=== PATIENT | female | born 1955 | race Caucasian/White ===

== ENCOUNTER 2021-10-13 07:58 | Observation (INO) ==
--- NOTE | 2021-08-07 13:29 | PAT Medication Instructions ---
Medication Instructions Date of Service August 07, 2021 Home Medications Medication Instructions Recorded Flutter Valve #1 ea 03/06/21 levocetirizine 5 mg tablet 5 mg PO DAILY PRN #90 tab 04/14/21 albuterol sulfate 90 mcg/actuation 2 puff INHALATION UD PRN #8.5 g 06/22/21 aerosol inhaler ibuprofen 200 mg capsule 800 mg PO UD PRN losartan 100 mg tablet 100 mg PO QAM red yeast rice 600 mg capsule 600 mg PO QAM tramadol 50 mg tablet (Ultram) 100 mg PO QID Progesterone 200 mg PO QPM coenzyme Q10 100 mg capsule (CoQ-10) 100 mg PO HS levocetirizine 5 mg tablet 5 mg PO DAILY PRN tiotropium bromide 2.5 mcg/actuation mist for inhalation (Spiriva Respimat) 2 puff INHALATION QAM albuterol sulfate 90 mcg/actuation aerosol inhaler 2 puff INHALATION UD PRN fluticasone propionate 50 mcg/actuation nasal spray,suspension (Allergy Relief (fluticasone)) 1 spray INTRANASAL DAILY PRN ASK your surgeon for instructions ibuprofen 200 mg capsule 800 mg PO UD PRN STOP taking 2 weeks before surgery red yeast rice 600 mg capsule 600 mg PO QAM coenzyme Q10 100 mg capsule (CoQ-10) 100 mg PO HS DO NOT take the morning of surgery losartan 100 mg tablet 100 mg PO QAM levocetirizine 5 mg tablet 5 mg PO DAILY PRN Take morning of surgery With a small sip of water, OTHERWISE NOTHING TO EAT OR DRINK AFTER MIDNIGHT: tramadol 50 mg tablet (Ultram) 100 mg PO QID tiotropium bromide 2.5 mcg/actuation mist for inhalation (Spiriva Respimat) 2 puff INHALATION QAM albuterol sulfate 90 mcg/actuation aerosol inhaler 2 puff INHALATION UD PRN (use if needed; please bring with you to hospital day of surgery if possible) fluticasone propionate 50 mcg/actuation nasal spray,suspension (Allergy Relief (fluticasone)) 1 spray INTRANASAL DAILY PRN (if needed) Take evening before surgery tramadol 50 mg tablet (Ultram) 100 mg PO QID albuterol sulfate 90 mcg/actuation aerosol inhaler 2 puff INHALATION UD PRN (if needed) fluticasone propionate 50 mcg/actuation nasal spray,suspension (Allergy Relief (fluticasone)) 1 spray INTRANASAL DAILY PRN (if needed) Progesterone 200 mg PO QPM (unless surgeon directed otherwise) Other Notes If you have any questions please call us at [phone] or [phone] or [phone] or [phone]
--- NOTE | 2021-08-10 15:13 | Anesthesiology Consultation ---
Date of Service August 10, 2021 Assessment & Plan (1) Encounter for pre-operative examination: - awaiting vascular surgery clearance, pending evaluation will then re-visit outpatient joint eligibility per Dr. Phelps. Message left for pt. - carotid artery stenosis: s/p R CEA, 60-69% stenosis L ICA. Last carotid doppler more than 1 year ago. Chronic, infrequent dizziness/lightheadedness without presyncope. Case reviewed with Dr. Olivier Phelps who advised patient will need vascular surgery clearance prior to TSA and pending that evaluation, outpatient joint eligibility will need further reviewed. - Pt advised she needs to contact surgeon's office regarding if it is acceptable to proceed with root canal/surgery as planned, she verbalized understanding and agreement. - pulm 06/22/21 [place]: "...COPD with chronic bronchitis. Gold class B/C...still complains of shortness of breath which is usually when she is sitting. Stress/anxiety could be playing a role in that...PFT 06/18/2021: No obstructive lung dysfunction, insignificant bronchodilator response, normal TLC, normal DLCO: FVC 3.2 L 75%, FEV1 2.62 L 107%, FEV1/FVC 80%, RV 60%, TLC 88%, RV/TLC 67%, DLCO 77%...Cough likely secondary to upper airway cough syndrome. Allergic rhinitis with postnasal drip I think is playing a role major role. Chronic bronchitis can also be one of the reasons. Continue with fluticasone nasal spray and OTC antihistamine as needed basis..." - COVID screening: Per assessment on 08/10/2021: Travel screen negative, no known COVID-19 positive contacts or current COVID-19 related symptoms in past 2 weeks. Surgeon arranging preop COVID testing, scheduled 09/03/2021. Awaiting results. Chart Review Chart Review: Pending: Refer to Additional Notes / Consult section and Patient seen in Pre Admission Testing Teaching & Discussion Pre-Anesthesia Teaching/Discussion Notes: Instructed NPO after midnight before surgery, except medications with 15 cc of water. Medication instructions provided according to the PAT guidelines. History Surgery Operation Date: 09/07/21 12:30 Proposed Procedures p Right Total Shoulder Arthroplasty Reverse versus - Cayetano Campos DO s Total Shoulder Arthroplasty - Cayetano A Andres, DO Height/Weight Height: 5 ft 5 in Weight: 72 kg Allergies Allergy/AdvReac Type Severity Reaction Status Date / Time meperidine Allergy Intermediate Dyspnea Verified 08/07/21 12:08 Penicillins Allergy Intermediate Eye Verified 08/07/21 12:08 swelling Medications Home Medications Medication Instructions Recorded Confirmed Last Taken ibuprofen 200 mg capsule 800 mg PO UD PRN 05/22/19 08/07/21 12/02/20 losartan 100 mg tablet 100 mg PO QAM 05/22/19 08/07/21 02/19/21 07:30 red yeast rice 600 mg capsule 600 mg PO QAM 05/22/19 08/07/21 02/17/21 20:00 tramadol 50 mg tablet (Ultram) 100 mg PO QID 05/22/19 08/07/21 06/22/21 Progesterone 200 mg PO QPM 01/22/20 08/07/21 02/17/21 coenzyme Q10 100 mg capsule 100 mg PO HS 01/22/20 08/07/21 02/17/21 20:00 (CoQ-10) Flutter Valve #1 ea 03/06/21 07/08/21 Unknown levocetirizine 5 mg tablet 5 mg PO DAILY PRN #90 tab 04/14/21 08/07/21 Unknown tiotropium bromide 2.5 2 puff INHALATION QAM 05/12/21 08/07/21 Unknown mcg/actuation mist for inhalation (Spiriva Respimat) albuterol sulfate 90 mcg/actuation 2 puff INHALATION UD PRN #8.5 g 06/22/21 08/07/21 Unknown aerosol inhaler fluticasone propionate 50 1 spray INTRANASAL DAILY PRN 08/07/21 08/07/21 Unknown mcg/actuation nasal spray,suspension (Allergy Relief (fluticasone)) Past Medical History Medical History (Updated 08/11/21 @ 10:11 by Betty Bee PA-C) Carotid artery stenosis s/p Right CEA (2011), under surveillance by vascular (Dr. Martinez) Patent right carotid endarterectomy with no evidence of restenosis, 60-69% LICA stenosis by velocity criteria however there are elevated CCA velocities and ICA/CCA ratio <2 suggesting no hemodynamically significant stenosis per 12/20/19 carotid duplex. No change compared to 12/04/18 study per report; pt reports chronic infrequent lightheadedness/dizziness without presyncope COPD (chronic obstructive pulmonary disease) Gold class B/C-stable per pt, denies inhaler use x several wks Fibromyalgia Hyperlipidemia Hypertension controlled, stable per pt Irregular heart beat Had loop recorder (2012) which found no significant findings after 5-6 yrs and was removed per PCP records Left lumbar radiculopathy Left sacral radiculopathy Patient denies h/o stroke, seizures, heart attack, heart failure, DM, blood clots or blood transfusions. Exercise / Class Metabolic Activity II 4-5 Yardwork/Stairs/Walk up hill (denies CP or SOB with 1 FOS) Past Family History Family History Other No family history of adverse response to anesthesia Past Surgical History Surgical History History of arthroscopy R/L knees (multiple) History of arthroscopy Right shoulder History of cardiac cath "10 or 15 years ago" @ [place]--no stents History of carpal tunnel release CTR + ulnar nerve decompression (01/01/21): LMA#4, atraumatic at [facility] History of carpal tunnel surgery of left wrist AND ULNAR NERVE DECOMPRESSION FEB 19 2021 History of CEA (carotid endarterectomy) Right (2011) History of colonoscopy History of knee surgery R/L ACL reconstruction S/P arthroscopy of left shoulder 02/07/20: Grade 1 view, MAC 3, ETT 7.0. S/P epidural steroid injection HX--multiple Past Anesthesia History No Hx of Anesthesia Complications and No Family Hx of Anesthesia Complications History of PONV No Hx of PONV and No Hx of Motion Sickness Social History Smoking Status: Former smoker tobacco type: cigarettes Do You Dip or Chew Tobacco: No Smoking End Date: quit 02/13/21 Hx Alcohol Use: No Hx Substance Use: No substance use type: does not use Review of Systems Chronic, infrequent dizziness/lightheadedness. Denies syncope, visual changes, headaches or abnormal sensations. Occasional snoring, occasionally snores self awake. Patient denies chest pain, shortness of breath, reflux, fever, chills, cough, wheezing, or palpitations. Physical Exam Vital Signs Vitals BP 120/74 P 75 TEMP 98.4 SP02 98% on RA RESP 17 Physical Mild cervical extension range of motion with discomfort TMD 3.5 finger breaths Mallampati Score 2 Dentition: intact, upcoming root canal, several permanent bridges upper sides bilat; denies chipped or loose teeth, caps/crowns Lungs: normal respiratory effort. Clear throughout to auscultation, no adventitious breath sounds Cardiac: regular rate and rhythm, no murmurs noted Carotid arteries: negative bruit bilat Testing Laboratory Results 07/28/2021 WBC: 7.3 H/H: 13/39 PLATELETS: 247 SODIUM: 136 POTASSIUM: 4.3 CHLORIDE: 101 CO2: 22 BUN: 14 CREATININE: 0.6 GLUCOSE: 101 Electrocardiogram Date: 12/02/20 NSR, rate 69 bpm Loss of R wave in V1 likely lead placement Chest X-Ray Date: 02/15/21 No evidence of acute cardiopulmonary disease Stress Test Date: 08/09/19 METS 8.5 MPHR 94% Negative for inducible ischemia Mild mitral regurgitation EF 55-60% Other Testing Chest CT 03/16/21 Atherosclerotic changes in the aorta. Coronary artery calcification present Unremarkable examination Carotid doppler 01/20/20 Complex, calcified plaque in the bulb and left ICA 60-69% stenosis Patent R carotid endarterectomy with no evidence of restenosis
--- NOTE | 2021-10-08 12:17 | History & Physical Report ---
Date of Service October 08, 2021 Assessment & Plan (1) Osteoarthritis of right shoulder: We will proceed with a right total shoulder arthroplasty. Postoperatively she will be kept overnight in the hospital for postoperative medical management. She plans to use energy physical therapy upon discharge. History of Present Illness Chief Complaint: Osteoarthritis of the right shoulder. Primary Care Provider: Yolanda Bradshaw MD Carina is a pleasant 66-year-old female who has been dealing with a year long history of right shoulder pain. She works at [employer]. 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 She has been having pain for the past year. She does have a history of right shoulder arthroscopy done about 12 years ago. She was having no pain in her shoulder untilthework- related incident. She has been seen by a local orthopedist. X-rays and MRI of the shoulder do show advanced osteoarthritis. After failing a year of conservative treatment, sheis electingto proceed with a right total shoulder arthroplasty. Allergies Allergy/AdvReac Type Severity Reaction Status Date / Time meperidine Allergy Intermediate Dyspnea Verified 10/06/21 15:33 Penicillins Allergy Intermediate Eye Verified 10/06/21 15:33 swelling Home Medications Medication Instructions Recorded Confirmed Type ibuprofen 200 mg capsule 800 mg PO UD PRN Pain 05/22/19 10/06/21 History losartan 100 mg tablet 100 mg PO QAM 05/22/19 10/06/21 History red yeast rice 600 mg capsule 600 mg PO QAM 05/22/19 10/06/21 History tramadol 50 mg tablet (Ultram) 100 mg PO QID 05/22/19 10/06/21 History Progesterone 200 mg PO QPM 01/22/20 10/06/21 History coenzyme Q10 100 mg capsule 100 mg PO HS 01/22/20 10/06/21 History (CoQ-10) Flutter Valve #1 ea 03/06/21 10/06/21 Rx levocetirizine 5 mg tablet 5 mg PO DAILY PRN allergy symptoms 04/14/21 10/06/21 Rx #90 tabs tiotropium bromide 2.5 2 puff inhalation QAM 05/12/21 10/06/21 History mcg/actuation mist for inhalation (Spiriva Respimat) albuterol sulfate 90 mcg/actuation 2 puff inhalation UD PRN Shortness 06/22/21 10/06/21 Rx aerosol inhaler Of Breath Or Wheezing #8.5 grams fluticasone propionate 50 1 spray intranasal DAILY PRN 08/07/21 10/06/21 History mcg/actuation nasal Allergy Symptoms spray,suspension (Allergy Relief (fluticasone)) Past Med/Surg History Medical History Carotid artery stenosis s/p Right CEA (2011), under surveillance by vascular (Dr. Martinez) Patent right carotid endarterectomy with no evidence of restenosis, 60-69% LICA stenosis by velocity criteria however there are elevated CCA velocities and ICA/CCA ratio <2 suggesting no hemodynamically significant stenosis per 12/20/19 carotid duplex. No change compared to 12/04/18 study per report; pt reports chronic infrequent lightheadedness/dizziness without presyncope COPD (chronic obstructive pulmonary disease) Gold class B/C-stable per pt, denies inhaler use x several wks Fibromyalgia History of COVID-06 September 2021. mild symptoms. symptoms resolved Hyperlipidemia Hypertension controlled, stable per pt Irregular heart beat Had loop recorder (2012) which found no significant findings after 5-6 yrs and was removed per PCP records Left lumbar radiculopathy Left sacral radiculopathy Surgical History History of arthroscopy R/L knees (multiple) History of arthroscopy Right shoulder History of cardiac cath "10 or 15 years ago" @ [place]--no stents History of carpal tunnel release CTR + ulnar nerve decompression (01/01/21): LMA#4, atraumatic at [facility] History of carpal tunnel surgery of left wrist AND ULNAR NERVE DECOMPRESSION FEB 19 2021 History of CEA (carotid endarterectomy) Right (2011) History of colonoscopy History of knee surgery R/L ACL reconstruction S/P arthroscopy of left shoulder 02/07/20: Grade 1 view, MAC 3, ETT 7.0. S/P epidural steroid injection HX--multiple Family History Other No family history of adverse response to anesthesia Social History Smoking Status: Former smoker Second Hand Exposure: No; Hx Alcohol Use: No Hx Substance Use: No Preferred Language: Divehi Communication Ability: Effective Rn X Ray Required: No Beliefs That Will Affect Care: None Current Living Situation: Alone Feels Safe at Home: Yes Assistive Devices: Glasses and Hearing Aid - Bilateral Review of Systems All systems reviewed & are unremarkable except as noted in HPI & below. Physical Exam On physical examination the right shoulder, she has about 120 degrees of forward elevation 120 degrees of abduction. She has 5 out of 5 motor strength throughout.. Constitutional WD/WN, vitals as above Eyes PERRL, conjunctivae normal, anicteric sclerae ENMT external ear and nose normal, oropharynx normal Neck trachea midline, no thyromegaly Respiratory normal respiratory effort, lungs clear to auscultation Cardiovascular RRR, no murmur, no edema Gastrointestinal (Abdomen) normal bowel sounds, soft, nontender, no hepatosplenomegaly Skin no rashes, warm and dry Psychiatric A+Ox3, euthymic affect Results & Data Results & Data Laboratory Results . Diagnostic Findings X-rays of the right shoulder do show some osteoarthritis with joint space narrowing, osteophyte formation, and [id number] articulation. MRI of the right shoulder shows an intact rotator cuff and grade IV chondromalacia of the glenohumeral joint.. PG Care Time/CCT Total # of Minutes Spent Total Time Spent with Patient: Total time spent is greater than 50% in coordination of care (as documented) at patient's floor/unit and/or counseling patient: Coding Level of Care Code None Diagnoses Osteoarthritis of right shoulder M19.011
[~2021-10-13 07:58] MED LIST: ACETAMINOPHEN 500 MG TAB PO SCH; BUPIVACAINE 0.5 % 5 MG/1 ML PF 10ML VIAL ONE; FAMOTIDINE 20 MG TAB PO SCH; GABAPENTIN 300 MG CAP PO SCH; Ketorolac (*for OR use only*) 30 MG, dexAMETHasone 4 MG, KETAMINE HCL (**OR use only) 1... INFIL SCH; LR 15ML/HR IV SCH; LR 60ML/HR IV SCH; TRANEXAMIC ACID 1,000 MG **IV Intra-op IV SCH; TRANEXAMIC ACID 1,000 MG **IV Pre-op IV SCH; ceFAZolin 2000MG 2,000 MG/15 ML SYR IV SCH; dexAMETHasone 4 MG TAB PO SCH
--- NOTE | 2021-10-13 08:08 | History & Physical Bridge Note ---
Date of Service October 13, 2021 History & Physical Bridge Note I have examined the patient, reviewed the History & Physical and in the interval since the performance of the History & Physical I have noted the following changes of clinical significance: no changes noted
[2021-10-13 09:11] LABS: Basophils # (auto) 0.01 K/uL (0-0.2); Basophils % (auto) 0.2 %; Eosinophils # (auto) 0.05 K/uL (0-0.50); Eosinophils % (auto) 1.1 %; Hematocrit (blood only) 42.2 % (34.1-44.9); Hemoglobin 13.8 g/dl (12.0-16.0); Immature Granulocytes # (auto) 0.01 K/uL (0.00-0.02); Immature Granulocytes % (auto) 0.2 %; Lymphocytes # (auto) 1.11 K/uL (1.2-3.4); Lymphocytes % (auto) 24.3 %; Mean Corpuscular Hemoglobin 28.5 pg (25.0-34.0); Mean Corpuscular Hgb Conc 32.7 g/dL (32.0-36.0); Mean Platelet Volume 10.8 fL (9.4-12.3); Neutrophils # (auto) 2.88 K/uL (1.4-6.5); Neutrophils % (auto) 63.2 %; Platelet Count 258 K/uL (130-400); RDW Coefficient of Variation 13.2 % (11.5-14.5); RDW Standard Deviation 41.1 fL (36.4-46.3); Red Blood Count 4.85 M/uL (3.93-5.22); White Blood Count 4.56 K/ul (4.8-10.8)
[2021-10-13] MEDS ORDERED: fentaNYL citrate 100 MCG/2 ML VIAL ONE (09:21)
[2021-10-13] MEDS ORDERED: PROPOFOL IV EMULSION 10 MG/ML 20 ML VIAL IV ONE (09:21)
[2021-10-13] MEDS ORDERED: DEXAMETHASONE SOD INJ 4 MG/ML VIAL ONE (09:21)
[2021-10-13] MEDS ORDERED: LIDOCAINE 2% MPF LOCAL 5 ML VIAL INFIL ONE (09:21)
[2021-10-13] MEDS ORDERED: MIDAZOLAM HCL 1 MG/ML 2ML VIAL ONE (09:21)
[2021-10-13] MEDS ORDERED: ONDANSETRON INJ 2 MG/ML 2 ML VIAL ONE (09:21)
[2021-10-13 09:23] LABS: INR 0.9 (0.9-1.1); Partial Thromboplastin Time 26.8 Seconds (21.0-31.0)
[2021-10-13 09:44] LABS: BUN Creatinine Ratio 23.4 (10-20); Calcium 9.9 mg/dl (8.5-10.1); Creatinine Clr Calc Pharmacy 86.8 ml/min; Est GFR (African American) 108.5 ml/min; Est GFR (Non-African American) 93.6 ml/min; Potassium 3.9 mmol/L (3.5-5.1)
[2021-10-13] MEDS ORDERED: ePHEDrine sulfate 50 MG/ML AMP IV PRN (10:14)
[2021-10-13] MEDS ORDERED: fentaNYL citrate 100 MCG/2 ML VIAL IV PRN (10:14)
[2021-10-13] MEDS ORDERED: ONDANSETRON INJ 2 MG/ML 2 ML VIAL IV PRN ×2 (10:14→13:51)
[2021-10-13] MEDS ORDERED: HYDROmorphone INJ 2 MG/ML SYR/VIAL IV PRN (10:14)
[2021-10-13] MEDS ORDERED: ATROPINE SULFATE 0.1 MG/ML 10ML SYR IV PRN (10:14)
[2021-10-13] MEDS ORDERED: ceFAZolin 2,000 MG/15 ML IV PUSH IV ONE (10:46)
[2021-10-13] MEDS: ALLERGY Noted to ORDERED Medication SCH ×2 (10:52→14:05)
[2021-10-13] MEDS ORDERED: Nursing to Pharmacy Communication SCH (11:00)
[2021-10-13] MEDS ORDERED: ePHEDrine sulfate 50 MG/ML AMP ONE (11:33)
--- NOTE | 2021-10-13 12:21 | Operative Report ---
PG Post Operative Report Pre & Post Diagnosis Operation Date: 10/13/21 10:30 Pre-Op Diagnosis: Right shoulder osteoarthritis With tendinopathy long head of the biceps tendon Post-Op Diagnosis: Right shoulder osteoarthritis With tendinopathy of the long head biceps tendon I identified the patient and participated in the time-out.: Yes Procedure Operation Date: 10/13/21 10:30 Actual Procedures p Total Shoulder Arthroplasty Right(Right) with open biceps tenodesis as a distinct and separate procedure (modifier 59)- Cayetano Campos DO Surgeon Cayetano Campos DO Foundry Finisher Cayetano Butt PA-C Estimated Blood Loss 250 Findings Consistent with Post-Op Diagnosis Specimens Right humeral head Description of Procedure A CPT code modifier 59: The long head of the biceps tendon was enlarged and inflamed consistent with tendinopathy. A tenodesis was opted. This was a separate and distinct portion of the procedure. For these reasons, a CPT code modifier 59 will be added to this case. Implants used: I used a [employer] Comprehensive total shoulder arthroplasty system with a size 13 press fit micro humeral stem, a size 46 x 21 eccentric humeral head, and a size 3 glenoid with a trabecular metal peg. The glenoid was cemented in place with Palacos G cement. Roxana arrived at [facility] for the above procedure. She was seen in the preoperative holding area and the operative extremity was identified and signed. She was given a preoperative antibiotic, TXA, and an interscalene nerve block. She was taken back to the operating room, laid on table in supine position, and put under general anesthesia. She was then put into the beachchair position. The shoulder was then prepped and draped in sterile fashion. A timeout was done and the patient and the operative extremity was properly identified. A deltopectoral approach was used. Dissection was taken down through the fascia and the deltoid was retracted laterally and the conjoined tendon was retracted medially. The anterior shoulder was exposed. The biceps groove was opened up and the biceps tendon was examined extensively. The biceps tendon demonstrated enlargement and inflammatory changes consistent with longstanding inflammation in the context of osteoarthritis. The long head of the biceps tendon was then tenodesed to the upper border of the pectoralis major. This was a separate and distinct portion of the procedure. The subscapularis was then released off the lesser tuberosity with a centimeter of cuff tissue remaining. The inferior capsule was released and the humeral head was dislocated. The rotator cuff was inspected and intact. A canal finding reamer was sent down the center of the humeral canal. Sequential reaming up to a size 13 reamer was done. Offset reamer a proximal humeral resection guide was placed. The proximal humerus was resected at 135 of inclination and 30 of retroversion. Inferior osteophytes were then removed and the glenoid was exposed. Time was spent doing an appropriate labral release. The glenoid measured to be a size 3. A 3.2 mm Steinmann pin was placed in the central hole of the glenoid vault pin guide. The glenoid was then reamed with a propeller reamer. The central post cutter was then used to prepare for the central boss. The cannulated peripheral peg drill guide was then placed and 3 peg holes were drilled. The final size 3 glenoid was then cemented in place with Palacos G cement. Surrounding soft tissues were then injected with 100 cc of an orthopedic pain control cocktail. Once cement had dried the proximal humerus was once again exposed. Sequential broaching of the humerus up to a size 13 broach was done. Off that broach a size 46 x 21 eccentric humeral head was trialed. The shoulder was then reduced, brought through a full range of motion, and felt to be stable. The shoulder was then dislocated and the broach was removed. The final size 13 micro humeral stem implant was then impacted into place. A size 46 x 21 eccentric humeral head was then impacted onto the humeral stem. The shoulder was then reduced and once again brought through a full range of motion and felt to be stable. The subscapularis was then tenodesed back to the lesser tuberosity with transosseous FiberWire sutures and side to side sutures with the arm in 45 of external rotation. 2 sutures were placed in the lateral rotator interval. A dilute betadyne lavage was then done for 3 minutes. The joint was then irrigated with normal saline solution. Hemostasis was obtained. The interval was closed with 2-0 Vicryl suture. The skin was closed with 2-0 Vicryl and buck. A Silverlon dressing was placed and the arm was rested in a regular arm sling. She was then extubated and transferred to a hospital bed. She was taken to the postanesthesia care unit in stable condition. She tolerated the procedure well. Cayetano Butt PA-C, was present for the entire procedure. He was critical for patient positioning, prepping, draping, retraction exposure, wound closure and application of sterile dressing. I attest to the content of the Intraoperative Record and any orders documented therein. Any exceptions are noted below.
--- NOTE | 2021-10-13 13:46 | Anesthesiology Progress Note ---
Date of Service October 13, 2021 Anesthesia Post Procedure Vital Signs Vital Signs: Temp Pulse Pulse Resp BP BP Pulse Ox 10/13/21 13:25 36.3 C L 77 17 119/74 94 10/13/21 13:15 36.5 C 76 15 136/74 95 10/13/21 13:05 85 19 145/78 H 95 10/13/21 12:55 82 18 145/82 H 100 10/13/21 12:45 77 15 146/76 H 100 10/13/21 12:38 36.0 C L 89 14 174/100 H 99 10/13/21 08:41 36.8 C 69 20 170/89 H 100 O2 Del Method O2 Flow Rate 10/13/21 13:25 Room Air 10/13/21 13:15 Room Air 10/13/21 13:05 Room Air 10/13/21 12:55 Oxymask 5 10/13/21 12:45 Oxymask 5 10/13/21 12:38 Oxymask 5 10/13/21 08:41 Room Air Pain Intensity Right Back: Pain Intensity: 2 Transfer of Care Handoff Completed per policy Notes Mental Status: alert / awake / arousable and participated in evaluation Patient Amnestic to Procedure: Yes Nausea / Vomiting: adequately controlled Pain: adequately controlled Airway Patency, RR, SpO2: stable & adequate BP & HR: stable & adequate Hydration State: stable & adequate Anesthetic Complications: no major complications apparent and Pt Satisfied with anesthetic care
[2021-10-13] MEDS ORDERED: FLUTICASONE PROPIONATE NA SPR 16 GM BTL PRN (13:51)
[2021-10-13] MEDS ORDERED: HYDROmorphone INJ 0.5 MG/0.5 ML SYR IV PRN (13:51)
[2021-10-13] MEDS ORDERED: MAGNESIUM HYDROXIDE SUSP 30 ML UDC PO PRN (13:51)
[2021-10-13] MEDS ORDERED: METOCLOPRAMIDE HCL INJ 5 MG/ML 2 ML VIAL IV PRN (13:51)
[2021-10-13] MEDS ORDERED: bisacodyL 10 MG SUPP PR PRN (13:51)
[2021-10-13] MEDS ORDERED: NALOXONE HCL 0.4 MG/1 ML VIAL/CARP IV PRN (13:51)
[2021-10-13] MEDS ORDERED: ALBUTEROL HFA 8 GM INHALER INH PRN (13:51)
[2021-10-13] MEDS ORDERED: oxyCODONE HCL IR 5 MG TAB (IMMEDIATE RELEASE) PO PRN (13:51)
[2021-10-13] MEDS ORDERED: SODIUM CHLORIDE 0.9% 1000ML 1,000 ML IV SCH (13:51)
--- NOTE | 2021-10-13 13:53 | XRay Report ---
XR shoulder RT min 2V routine CLINICAL HISTORY: Post shoulder surgery COMPARISON: Right shoulder radiographs February 10, 2021. FINDINGS: Alignment of the right shoulder arthroplasty is anatomic. There are skin buck. No perip rosthetic fracture or unexpected radiopaque foreign bodies present. IMPRESSION: Expected findings following right shoulder arthroplasty. ACT 112: Negative or not required by law. Electronically signed by: Tee Enciso M.D. 10/13/2021 1:51 PM
[2021-10-13] MEDS: ACETAMINOPHEN 500 MG TAB PO SCH ×2 (16:43→21:31)
[2021-10-13] MEDS: KETOROLAC TROMETHAMINE 15 MG/ML VIAL IV SCH ×2 (16:43→21:32)
[2021-10-13] MEDS: traMADol HCL 50 MG TABLET PO SCH ×2 (16:44→19:54)
[2021-10-13] MEDS: ceFAZolin 2000MG 2,000 MG/15 ML SYR IV SCH (18:15)
[2021-10-13] MEDS ORDERED: SENNA 8.6 MG TAB PO SCH (21:00)
[2021-10-13] MEDS: DOCUSATE SODIUM 100 MG CAP PO SCH (21:31)
[2021-10-14] MEDS: KETOROLAC TROMETHAMINE 15 MG/ML VIAL IV SCH ×2 (03:37→10:42)
[2021-10-14] MEDS: ceFAZolin 2000MG 2,000 MG/15 ML SYR IV SCH (03:37)
[2021-10-14] MEDS: ACETAMINOPHEN 500 MG TAB PO SCH (06:43)
--- NOTE | 2021-10-14 07:09 | Orthopedic Progress Note ---
Date of Service October 14, 2021 Assessment & Plan (1) Status post replacement of right shoulder joint: Overall she is doing very well. She denies any pain in the right shoulder. She will be seen by physical therapy today for ambulation and range of motion exercises. She can be discharged home later today. She will follow-up orthopedics in 2 weeks. Isauro Lim was seen and examined at bedside this morning. Overall she is doing very well. She denies any pain in the right shoulder. She was able to get some sleep last night. She has no complaints.. Review of Systems All systems reviewed & are unremarkable except as noted in HPI & below. Physical Exam On physical examination of the right shoulder, the dressing is clean and dry. She is wearing her sling as instructed. She has full motion of her hand and wrist.. Results & Data Results & Data Laboratory Results . Diagnostic Findings Postoperative x-rays of the right shoulder show the prosthesis to be in anatomic alignment without any evidence of fracture, screws, or loosening. PG Care Time/CCT Total # of Minutes Spent Total Time Spent with Patient: Total time spent is greater than 50% in coordination of care (as documented) at patient's floor/unit and/or counseling patient: Coding Level of Care Code 44975 Post Operative Follow-Up Diagnoses Status post replacement of right shoulder joint Z96.611
--- NOTE | 2021-10-14 07:10 | Discharge Summary ---
Date of Service October 14, 2021 Admission HPI (Per Admitting) Carina is a pleasant 66-year-old female who has been dealing with a year long history of right shoulder pain. She works at [employer]. 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 She has been having pain for the past year. She does have a history of right shoulder arthroscopy done about 12 years ago. She was having no pain in her shoulder untilthework- related incident. She has been seen by a local orthopedist. X-rays and MRI of the shoulder do show advanced osteoarthritis. After failing a year of conservative treatment, sheis electingto proceed with a right total shoulder arthroplasty. Admission Exam (Per Admitting) On physical examination the right shoulder, she has about 120 degrees of forward elevation 120 degrees of abduction. She has 5 out of 5 motor strength throughout.. Principal Diagnosis Same as "Discharge Diagnosis" noted below under Discharge Instructions. Discharge Exam On physical examination of the right shoulder, the dressing is clean and dry. She is wearing her sling as instructed. She has full motion of her hand and wrist.. Discharge Data Procedures Performed Operation Date: 10/13/21 10:30 Actual Procedures p Total Shoulder Arthroplasty Right(Right) - Cayetano Campos DO Ordered Studies 10/13/21 05:00 US - OR guided needle placemen Routine Hospital Course (1) Status post replacement of right shoulder joint: On October 13, 2021 Carina arrived at [facility] and underwent a right shoulder replacement without complication. She had a general anesthetic and a right interscalene nerve block. Postoperatively she was placed in a sling and transferred to the general orthopedic floors. Her hospital course was uneventful. On postop day #1, her vital signs were stable and her pain was well controlled. She was able to participate well with physical therapy doing ambulation and range of motion exercises. She was then discharged home. She will follow-up with orthopedics in 2 weeks. PG Care Time/CCT Total # of Minutes Spent Total Time Spent with Patient: Total time spent is greater than 50% in coordination of care (as documented) at patient's floor/unit and/or counseling patient: Discharge Plan Discharge Items Patient Disposition: Home - Home Health Services Reason For Visit: Right Shoulder Osteoarthritis Discharge Diagnosis: Right shoulder replacement Activity: Per Instructions section Non-emergency contact: Surgeon Call non-emergency contact if: your wound has increased redness and your wound has increased drainage Follow-up/Referrals: Yolanda Bradshaw MD [Primary Care Provider] - Diet: Regular Addtl Attending Provider Instructions: Activity and Therapy Recommendations: * If you are using [facility] then therapy will be provided at your home until they feel you have accomplished all of your goals. * If you are using [facility] then Physical Therapy will be provided until they feel you are ready to start Outpatient Physical Therapy. * If you are not using home therapy then Outpatient Physical Therapy should start about 3-5 days from your day of surgery. Therapy will last about 8-12 weeks * Wear your sling for 3 weeks, unless otherwise instructed. You may remove your sling to shower and to dress, but otherwise, you should be in your sling at all times, including while sleeping * The shoulder replacement is very stable and you can use your hand while in the sling * You were shown a series of exercises in the hospital. Do these exercises daily including the exercises you were shown in physical therapy. Medications: * Narcotic You will likely be sent home from the hospital with a prescription for the narcotic pain medication that worked best throughout your stay. * Other medications may be prescribed for specific circumstances. If you have any questions, please call the office at . * Resume previous home medications unless otherwise instructed Dressing Care: Leave the Silverlon dressing in place for 7 days. After 7 days you may remove the dressing. If the incision is not draining then you may leave the buck open to air. If there is a little bit of drainage or if the buck are getting stuck on your clothing then cover the incision with a dry dressing. The buck will be removed at your 2 week follow-up appointment. Showering: You may shower with the Silverlon dressing in place. Do not let the shower spray hit the dressing directly. Pat the Silverlon dressing dry. If the dressing becomes wet underneath, then simply remove the dressing. Keep the incision dry until you are 7 days out from the day of surgery. After 7 days you may remove the Silverlon dressing and shower with the buck exposed. Let soapy water run over the buck and pat them dry. Do not scrub or soak the incision. Things To Watch For: * Drainage from the incision site that occurs more than one week after your surgery. * Increased redness at the incision site. * Fever above 102 degrees Fahrenheit. * Unusual chest pain or shortness of breath. * Call [facility] at with any of the above problems Follow-Up Visit: Follow-up with Dr. Campos's PA (Cayetano Butt) 2-3 weeks after your day of surgery. He will remove your buck and answer any questions. If you have any additional questions or concerns, Dr Campos is usually in the o ffice at the same time and will be available An appointment was probably scheduled when you signed-up for surgery in the office. If you have any questions call More detailed instructions as well as Frequently Asked Questions were provided in a folder by our office when you signed-up for surgery. Please review these instructions when you get home. If you have any further questions or concerns, please feel free to call the office at [phone] Pending Studies at Discharge: No Stand-Alone Forms: [facility] Medications and DC Order Prescriptions: New oxycodone-acetaminophen 5-325 mg tablet 1 tab PO Q6H PRN (Reason: pain) Qty: 30 0RF Continued levocetirizine 5 mg tablet 5 mg PO DAILY PRN (Reason: allergy symptoms) Qty: 90 1RF (DME) Flutter Valve Device See Rx Instructions .MEDSUPPLY Qty: 1 0RF Rx Instructions: Use it every 6 hours when awake. albuterol sulfate 90 mcg/actuation HFA aerosol inhaler 2 puff inhalation UD PRN (Reason: Shortness Of Breath Or Wheezing) Qty: 8.5 3RF coenzyme Q10 [CoQ-10] 100 mg Capsule 100 mg PO HS Progesterone 200 mg PO QPM red yeast rice 600 mg Capsule 600 mg PO QAM Label Comments: HAVEN'T TAKEN FOR AWHILE ibuprofen 200 mg Capsule 800 mg PO UD PRN (Reason: Pain) tramadol [Ultram] 50 mg Tablet 100 mg PO QID losartan 100 mg Tablet 100 mg PO QAM Spiriva Respimat 2.5 mcg/actuation mist 2 puff inhalation QAM Label Comments: WHEN I REMEMBER fluticasone propionate [Allergy Relief (fluticasone)] 50 mcg/actuation spray,suspension 1 spray intranasal DAILY PRN (Reason: Allergy Symptoms) Rx Instructions: administer into each nostril once daily Discharge Orders: Discharge Order (Routine); Ordered 10/14/21 Ordered By: Cayetano Campos Admission Data Admit Date/Time: 10/13/21 12:36 Attending Provider: Cayetano Campos Admit Provider: Cayetano Campos Primary Care Provider: Yolanda Bradshaw
[2021-10-14] MEDS: traMADol HCL 50 MG TABLET PO SCH (07:48)
[2021-10-14] MEDS: DOCUSATE SODIUM 100 MG CAP PO SCH (07:48)
[2021-10-14] MEDS ORDERED: dexAMETHasone 4 MG TAB PO SCH (08:00)
[2021-10-14] MEDS ORDERED: MULTIVITAMIN TAB PO SCH (09:00)
[2021-10-14] MEDS ORDERED: UMECLIDINIUM BROMIDE 62.5MCG/BLISTER 7 PUFFS/INHALER INH SCH (09:00)
[2021-10-14] MEDS ORDERED: LOSARTAN POTASSIUM 50 MG TAB PO SCH (09:00)
== END 2021-10-14 12:15 | disposition home health service (06) ==
LOC: 3E 07:58 → ASU 07:58